=== PATIENT | male | born 1965 | race Caucasian/White ===

== ENCOUNTER 2017-05-01 18:11 | Inpatient (IN) | payer OTHER ==
[~2017-05-01] VITALS: Ht 167.6 cm; Wt 67.4 kg
[2017-05-01 19:46] LABS: LACTIC ACID 1.3 mmol/L (0.5-2.2)
[2017-05-02 04:38] LABS: BASOPHIL 0.1 % (0-2); EOSINOPHIL 0 % (0-5); HCT 39.9 % (42.0-52.0); LYMPHOCYTE 3.8 % (15-48); MCH 30.5 pg (25.0-31.0); MCHC 35.1 g/dL (32.0-36.0); MCV 86.9 fL (78.0-100.0); MONOCYTE 2.8 % (0-12); MPV 10.9 fL (6.0-9.5); NEUTROPHIL 93.3 % (41-80); PLT 254 K/uL (150-400); RBC 4.59 M/uL (4.70-6.00); RDW 14.6 % (11.5-14.0)
[2017-05-02 04:53] LABS: CREATININE 1.1 mg/dL (0.7-1.2); POTASSIUM 3.8 mmol/L (3.5-5.1)
[2017-05-03 03:59] LABS: HCT 35.8 % (42.0-52.0); HGB 12.5 g/dl (13.2-18.0); MCH 30.3 pg (25.0-31.0); MCHC 34.9 g/dL (32.0-36.0); MCV 86.7 fL (78.0-100.0); MPV 10.7 fL (6.0-9.5); RBC 4.13 M/uL (4.70-6.00); RDW 14.8 % (11.5-14.0); WBC 17.3 K/uL (4.0-10.5)
[2017-05-04 11:54] LABS: BASOPHIL 0.5 % (0-2); EOSINOPHIL 0.6 % (0-5); HCT 36.2 % (42.0-52.0); HGB 12.8 g/dl (13.2-18.0); LYMPHOCYTE 29.4 % (15-48); MCHC 35.4 g/dL (32.0-36.0); MCV 87.7 fL (78.0-100.0); MONOCYTE 9.3 % (0-12); MPV 10.6 fL (6.0-9.5); NEUTROPHIL 60.2 % (41-80); PLT 320 K/uL (150-400); RBC 4.13 M/uL (4.70-6.00); RDW 14.9 % (11.5-14.0)
[2017-05-04 11:55] LABS: WBC 10.3 K/uL (4.0-10.5)
--- NOTE | 2017-05-04 14:07 | NUR ---
REVIEWED DISCHARGE INSTRUCTIONS APPT INFORMATION AND MEDICATIONS WITH PT VERBALIZED UNDERSTANDING
[2017-05-04] MEDS ORDERED: VENTOLIN HFA IN18 GM INH (15:42)
[2017-05-04] MEDS ORDERED: LEVAQUIN500 MG PO (15:42)
[2017-05-04] MEDS ORDERED: LACTINEX1 EACH PO (15:42)
[2017-05-04] MEDS ORDERED: PRILOSEC20 MG PO (15:45)
== END 2017-05-04 13:46 | disposition home or self-care (01) | DRG 190 ==
LOC: FER 18:11 → FMS 19:30
PROVIDERS: Internal Medicine; Nurse Practitioner; ADMIT Internal Medicine
DX: J44.0 Chronic obstructive pulmonary disease with (acute) lower respiratory infection (principal); J18.9 Pneumonia, unspecified organism; K21.9 Gastro-esophageal reflux disease without esophagitis; Z87.891 Personal history of nicotine dependence
CPT/HCPCS: 36415; 36600; 71010; 80048; 82803; 83605; 84443; 84484; 85025; 87070; 87205; 87804; 87899; 93005; 94010; 94640; 94667; 94668; J0456; J1956; J2543

== ENCOUNTER 2021-12-15 11:31 | Emergency (ER) | payer OTHER ==
[~2021-12-15 11:31] MED LIST: LACTINEX1 EACH PO; LEVAQUIN500 MG PO; PRILOSEC20 MG PO; VENTOLIN HFA IN18 GM INH
[2021-12-15 12:32] LABS: BASOPHIL 0.4 % (0-2); EOSINOPHIL 0 % (0-5); HCT 44.8 % (42.0-52.0); HGB 15.4 g/dl (13.2-18.0); LYMPHOCYTE 10.4 % (15-48); MCH 30.5 pg (25.0-31.0); MCHC 34.4 g/dL (32.0-36.0); MCV 88.7 fL (78.0-100.0); MONOCYTE 10.9 % (0-12); MPV 10.3 fL (6.0-9.5); NEUTROPHIL 76.7 % (41-80); NRBC 0; PLT 319 K/uL (150-400); RBC 5.05 M/uL (4.70-6.00); RDW 13.9 % (11.5-14.0); WBC 10.3 K/uL (4.0-10.5)
[2021-12-15 12:53] LABS: ALBUMIN 2.9 g/dL (3.4-5.0); BILIRUBIN - TOTAL 0.9 mg/dL (0.2-1.0); BUN/CREAT RATIO (CALC) 24.8 RATIO; CREATININE 1.01 mg/dL (0.67-1.17); GLOBULIN (CALCULATION) 3.7 g/dL; POTASSIUM 3.6 mmol/L (3.5-5.1); TOTAL PROTEIN 6.6 g/dL (6.4-8.2)
[2021-12-15] MEDS ORDERED: PREDNISONE 20MG20 MG PO (15:41)
[2021-12-15] MEDS ORDERED: AZITHROMYCIN250 MG PO (15:58)
== END 2021-12-15 17:00 | disposition home or self-care (01) ==
LOC: FER 11:31
PROVIDERS: Emergency Medicine
DX: U07.1 COVID-19 (principal); J12.82 Pneumonia due to coronavirus disease 2019; J43.9 Emphysema, unspecified; Z87.891 Personal history of nicotine dependence; Z79.51 Long term (current) use of inhaled steroids
CPT/HCPCS: 36415; 71045; 71275; 80053; 85025; 85379; 93005; J2930; J7030; Q9967